=== PATIENT | male | born 1995 | race African-American/Black ===

== ENCOUNTER 2021-01-21 22:51 | Emergency (ER) | payer OTHER ==
[~2021-01-21] VITALS: Ht 177.8 cm; Wt 86.0 kg
[2021-01-21 22:56] VITALS: BP 130/85
== END 2021-01-22 00:15 | disposition left against medical advice (07) ==
LOC: ER 22:51
DX: Z53.21 Procedure and treatment not carried out due to patient leaving prior to being seen by health care provider (principal)